=== PATIENT | female | born 1985 | race Caucasian/White ===

== ENCOUNTER 2022-09-11 05:52 | Inpatient (IN) | payer OTHER ==
[2022-09-11] VITALS (30 sets, daily range): BP systolic 124–201; BP diastolic 69–104
[~2022-09-11] VITALS: Ht 167.6 cm; Wt 87.0 kg
[2022-09-11] MEDS ORDERED: VITA100T59 PO (05:56)
[2022-09-11] MEDS ORDERED: PRENTAB9 PO (05:56)
[2022-09-11] MEDS ORDERED: HOME MED LIST COMPLETE! XX SCH (06:10)
[2022-09-11] MEDS ORDERED: LACTATED RINGER'S 1000 ML IV STA (09:36)
[2022-09-11] MEDS ORDERED: PENICILLIN G POTASSIUM 5 MU IV 5 MU in D5W MINI-BAG PLUS 100 ML IV STA (09:36)
[2022-09-11] MEDS ORDERED: OXYTOCIN DRIP 30 UNITS in IV 1 EA IV PRN ×4 (09:40)
[2022-09-11] MEDS ORDERED: METHYLERGONOVINE MALEATE 0.2 MG/ML VIAL (J2210) IM PRN ×2 (09:40→23:25)
[2022-09-11] MEDS ORDERED: TRANEXAMIC ACID INJection 1,000 MG in NS 100 ML IV PRN (09:40)
[2022-09-11] MEDS ORDERED: CARBOPROST TROMETHAMINE 250 MCG/ML AMP IM PRN (09:40)
[2022-09-11] MEDS ORDERED: LIDOCAINE 1% MDV 20ML VIAL INFIL PRN (09:40)
[2022-09-11 10:35] LABS: HEMATOCRIT 39.8 % (36.0-47.0); HEMOGLOBIN 13.1 g/dl (12.0-15.5); MEAN CORPUSCULAR HEMOGLOBIN 31.8 pg (27.0-33.0); MEAN CORPUSCULAR HGB CONC 32.9 g/dl (32.0-36.5); MEAN CORPUSCULAR VOLUME 96.6 fl (80.0-96.0); PLATELET COUNT, AUTOMATED 216 10^3/uL (150-450); RED BLOOD COUNT 4.12 10^6/uL (4.00-5.40); WHITE BLOOD COUNT 8.7 10^3/uL (4.0-10.0)
[2022-09-11] MEDS ORDERED: FENTANYL 2MCG/ML ROPIVACAINE 0.2% IN 0.9% NACL 100ML IVBAG As Ordered ONE (14:57)
[2022-09-11] MEDS ORDERED: NALOXONE INJ 0.4MG/1ML VIAL (J2310 PER 1MG) IV PRN (15:10)
[2022-09-11] MEDS ORDERED: LR 500 ML IV PRN (15:10)
[2022-09-11] MEDS ORDERED: ePHEDrine SULFATE 25 MG/5 ML(5MG/ML) SYRINGE IVP PRN (15:10)
[2022-09-11] MEDS ORDERED: EPIDURAL/PCA KEYS XX PRN (15:10)
[2022-09-11] MEDS ORDERED: FENTANYL/ROPIVACAINE/NACL BAG 100 ML EPIDURAL SCH (15:10)
[2022-09-11] MEDS ORDERED: ONDANSETRON 4MG 2ML VIAL IV PRN (15:10)
[2022-09-11] MEDS ORDERED: diphenhydrAMINE 50MG/ML VIAL (J1200) IV PRN (15:10)
[2022-09-11] MEDS ORDERED: PEN G POT 3,000,000 UNIT/50 ML 3,000,000 UNIT in IV 1 EA IV SCH (15:30)
[2022-09-11] MEDS: LR 1,000 ML IV SCH ×2 (15:41→17:07)
[2022-09-11] MEDS ORDERED: OXYTOCIN INJ 10 UNITS/ML VIAL (J2590) As Ordered ONE (18:46)
[2022-09-11] MEDS ORDERED: OXYTOCIN DRIP 30 UNITS in IV 1 EA IV SCH ×5 (19:40→23:25)
[2022-09-11] MEDS ORDERED: OXYTOCIN INJ 10 UNITS/ML VIAL (J2590) IV ONE ×2 (22:20→23:25)
[2022-09-11 22:33] LABS: CORD GAS ABE A -11.5; CORD GAS ABE V -10.4; CORD GAS HCO3 A 20.6 MEQ/L; CORD GAS O2 SAT A 17.3 %; CORD GAS O2 SAT V 40.6 %; CORD GAS PCO2 A 76.2 mmHg; CORD GAS PCO2 V 55.5 mmHg; CORD GAS PH A 7.05 UNITS; CORD GAS PH V 7.152 UNITS; CORD GAS PO2 A 13.6 mmHg; CORD GAS PO2 V 21.1 mmHg; CORD GAS SBC V 15.2 MEQ/L; CORD GAS TCO2 V 20.7 MEQ/L
[2022-09-11] MEDS ORDERED: MOM 30ML SUSPENSION UDC PO PRN (23:25)
[2022-09-11] MEDS ORDERED: IBUPROFEN 600MG TAB PO PRN (23:25)
[2022-09-11] MEDS ORDERED: DOCUSATE SODIUM 100MG CAPSULE PO PRN (23:25)
[2022-09-11] MEDS ORDERED: RHOGAM 300 MCG (1500 IU) INJ (J2790) IM SCH (23:25)
[2022-09-11] MEDS ORDERED: DIBUCAINE 1% OINTMENT 30GM TOP PRN (23:25)
[2022-09-11] MEDS ORDERED: METHYLERGONOVINE MALEATE 0.2 MG TAB PO PRN (23:25)
[2022-09-11] MEDS ORDERED: ACETAMINOPHEN TAB 650MG DOSE (2X325MG) PO PRN (23:25)
[2022-09-11] MEDS ORDERED: ANUSOL HC CREAM 30GM TOP PRN (23:25)
[2022-09-11] MEDS ORDERED: ACETAMINOPHEN 500 MG TAB PO PRN (23:25)
[2022-09-12 00:32] VITALS: BP 127/64
[2022-09-12] MEDS: LR 1,000 ML IV SCH (01:40)
[2022-09-12 06:02] VITALS: BP 109/58
[2022-09-12] MEDS: PRENATAL VITAMINS CHEWABLE TABLET PO SCH (08:02)
[2022-09-12 08:47] LABS: HEMATOCRIT 40.4 % (36.0-47.0); HEMOGLOBIN 13.5 g/dl (12.0-15.5); MEAN CORPUSCULAR HEMOGLOBIN 32.3 pg (27.0-33.0); MEAN CORPUSCULAR HGB CONC 33.4 g/dl (32.0-36.5); MEAN CORPUSCULAR VOLUME 96.7 fl (80.0-96.0); PLATELET COUNT, AUTOMATED 204 10^3/uL (150-450); RED BLOOD COUNT 4.18 10^6/uL (4.00-5.40); WHITE BLOOD COUNT 11.9 10^3/uL (4.0-10.0)
[2022-09-12 18:48] VITALS: BP 120/77
[2022-09-13 06:00] VITALS: BP 109/55
[2022-09-13] MEDS: PRENATAL VITAMINS CHEWABLE TABLET PO SCH (09:00)
[2022-09-13] MEDS ORDERED: INFLUENZA QUADRIVALENT PF VACCINE 0.5ML SYRINGE IM.IMMUN ONE (09:00)
[2022-09-13] MEDS ORDERED: MEASLES,MUMPS,RUBELLA VACCINE INJ (MMR-II) (90707) SC.IMMUN ONE (09:00)
== END 2022-09-13 11:10 | disposition home or self-care (01) | DRG 807 ==
LOC: M LDO 05:52 → M LDI 08:31 → M OBS 09-12
PROVIDERS: ADMIT Advanced Practice Midwife; ATTEND Obstetrics & Gynecology
PROC: 10E0XZZ Delivery of Products of Conception, External Approach (ICD-10-PCS; principal; 2022-09-11)
DX: O42.013 Preterm premature rupture of membranes, onset of labor within 24 hours of rupture, third trimester (principal); Z37.0 Single live birth; Z3A.35 35 weeks gestation of pregnancy; O99.824 Streptococcus B carrier state complicating childbirth; O99.344 Other mental disorders complicating childbirth; F41.9 Anxiety disorder, unspecified; O09.513 Supervision of elderly primigravida, third trimester